=== PATIENT | female | born 1980 | race Caucasian/White ===

== ENCOUNTER 2023-06-09 19:05 | Emergency (ER) | payer BC ==
[~2023-06-09] VITALS: Ht 167.6 cm; Wt 58.1 kg
--- NOTE | 2023-06-09 19:45 | NUR ---
PATIENT PRESENTS WITH BLADDER PRESSURE, BURNING ON URINATION X1 WEEK, IRREGULAR PERIODS (HAS IUD)
[2023-06-09 19:46] VITALS: BP_SYST 142; PULSE 98; RESP 17; TEMP 98.1; O2SAT 98
[2023-06-09 19:59] LABS: BLOOD, URINE 3+ (NEGATIVE); LEUKOCYTE ESTERASE ,URINE 3+ (NEGATIVE); NITRITE, URINE POSITIVE (NEGATIVE); PROTEIN URINE 2+ (NEGATIVE)
[2023-06-09 20:11] LABS: BILIRUBIN,URINE NEGATIVE (NEGATIVE); CLARITY/URINE SLIGHTLY CLOUDY (CLEAR); COLOR,URINE ORANGE (YELLOW); GLUCOSE,URINE NEGATIVE (NEGATIVE); KETONES,URINE NEGATIVE (NEGATIVE)
[2023-06-09 20:13] LABS: BACTERIA,URINE FEW /HPF (None Seen); MUCUS,URINE None Seen /LPF (None Seen); RBC,URINE 0-3 /HPF (0-3); WBC,URINE >100 /HPF (0-3)
== END 2023-06-09 19:45 | disposition left against medical advice (07) ==
LOC: SED 19:05
DX: N32.89 Other specified disorders of bladder (principal); Z53.21 Procedure and treatment not carried out due to patient leaving prior to being seen by health care provider
CPT/HCPCS: 81000; 87086; 99281